=== PATIENT | male | born 1990 | race African-American/Black ===

== ENCOUNTER 2017-08-08 08:13 | Emergency (ER) | payer OTHER | END 2017-08-08 08:39 | disposition home or self-care (01) | LOC: ERS 08:13 | DX: K03.81 Cracked tooth (principal) | CPT/HCPCS: 99282 ==

== ENCOUNTER 2019-09-13 22:59 | Emergency (ER) | payer OTHER, SELFPAY ==
[2019-09-13] MEDS ORDERED: Ketorolac Tromethamine 30 MG/ML VIAL ONE (23:37)
== END 2019-09-13 23:53 | disposition home or self-care (01) ==
LOC: ERS 22:59
DX: K03.81 Cracked tooth (principal); K02.9 Dental caries, unspecified
CPT/HCPCS: 96372; 99282; J1885